=== PATIENT | female | born 1965 ===

== ENCOUNTER 2023-08-04 05:29 | Day surgery (SDC) | payer OTHER ==
[2023-08-04] MEDS ORDERED: CEFAZOLIN SODIUM 1,000 MG VIAL ONE (07:07)
[2023-08-04] MEDS ORDERED: CEFAZOLIN SODIUM 1,000 MG VIAL IV SCH (08:00)
[2023-08-04] MEDS ORDERED: SUGAMMADEX SODIUM 200 MG/2 ML VIAL IV ONE ×2 (08:15→08:45)
[2023-08-04] MEDS ORDERED: ONDANSETRON HCL 2 MG/ML VIAL ONE (10:05)
== END 2023-08-04 13:40 | disposition home or self-care (01) ==
LOC: CIR.AMB 05:29
PROVIDERS: ATTEND Surgery
DX: K80.20 Calculus of gallbladder without cholecystitis without obstruction (principal); F41.9 Anxiety disorder, unspecified